=== PATIENT | female | born 1995 | race Caucasian/White ===

== ENCOUNTER 2019-06-22 15:12 | Emergency (ER) | payer SELFPAY ==
[2019-06-22] MEDS ORDERED: GLUCAGON INJ 1 MG VIAL IV ONE ×3 (15:26→16:03)
--- NOTE | 2019-06-22 15:33 | ED.PDOC ---
History of Present Illness - General Stated Complaint: CHOKING Time Seen by Provider: 06/22/19 15:26 Source: patient Exam Limitations: no limitations - History of Present Illness Initial Comments: SHE WAS EATING SOME BROCCOLI AND NOW FEELS THAT IS LODGED IN THE ESOPHAGUS. SHE HAS BEEN DROOLING. A SIMILAR EPISODE HAPPENED TO HER IN DECEMBER OF THIS YEAR. SHE HAD A PORK CHOP LODGED IN HER ESOPHAGUS. THEN SHE WAS IN [facility] AND UNDERWENT AN EGD TO DISLODGE THE FB. Timing/Duration: abrupt Severity: moderate Prearrival Treatment: no prearrival treatment Improving Factors: nothing Worsening Factors: eating Allergies/Adverse Reactions: Allergies NO KNOWN ALLERGY Allergy (Verified 06/22/19 15:40) Review of Systems - Review of Systems Constitutional: States: other Respiratory: States: no symptoms reported Cardiology: States: no symptoms reported Gastrointestinal/Abdominal: States: nausea, vomiting Genitourinary: States: no symptoms reported Skin: States: no symptoms reported Neurological: States: no symptoms reported Endocrine: States: no symptoms reported Past Medical History (General) - Patient Medical History Hx Gastroesophageal Reflux: Yes - HX OF ESOPHAGEAL FB Family Medical History - Family History Mother Living Status: Still Living Hx Family Hypertension: Yes Hx Family Cancer: Yes - Mom-breast CA Physical Exam - Physical Exam General Appearance: Alert, Other - ACTIVELY DROOLING Eye Exam: bilateral normal Ear Exam: bilateral ear: auricle normal Nasal Exam: normal inspection Throat Exam: normal mouth inspection Neck: non-tender Cardiovascular/Respiratory: regular rate, rhythm, no M/R/G, normal peripheral pulses Abdominal Exam: non-tender 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 SMITH. UNABLE TO GET A SURGICAL CREW. 06/22/19 17:31 THE PATIENT VOMITED AND SPONTANEOUSLY DISLODGED THE FB ( A PIECE OF HAMBURGER SHE NOW IS ABLE TO DRINK WATER ) Departure - Departure Clinical Impression: Impacted foreign body in esophagus Qualifiers: Encounter type: initial encounter Qualified Code(s): T18.108A - Unspecified foreign body in esophagus causing other injury, initial encounter Time of Disposition: 17:35 Disposition: Discharge to Home or Self Care Condition: Good Diet: bland diet Activity: increase activity as tolerated Referrals: UNKNOWN,PHYSICIAN [Primary Care Provider] - 1-2 Weeks Iker Dominguez MD [Referring] - 1-2 Weeks Additional Instructions: CALL DR. DOMINGUEZ'S OFFICE FOR A F/U APPT. [phone]
[2019-06-22 16:39] VITALS: TEMP 99
[2019-06-22 17:46] VITALS: BP 133/82; O2SAT 100
== END 2019-06-22 17:42 | disposition home or self-care (01) ==
LOC: ER 15:12
DX: T18.108A Unspecified foreign body in esophagus causing other injury, initial encounter (principal); R11.10 Vomiting, unspecified; K21.9 Gastro-esophageal reflux disease without esophagitis
CPT/HCPCS: J1610 ×2

== ENCOUNTER → 2019-08-09 | Outpatient (CLI) | payer BC | LOC: LAB.O 08:22 | PROVIDERS: ATTEND Obstetrics & Gynecology | DX: Z01.419 Encounter for gynecological examination (general) (routine) without abnormal findings (principal) ==